=== PATIENT | male | born 1995 | race American Indian/Alaskan Native ===

== ENCOUNTER 2020-09-17 18:53 | Emergency (ER) | payer SELFPAY ==
--- NOTE | 2020-09-17 20:58 | Emergency Department Report ---
ED Male HPI - General Chief complaint: Urogenital-Male Stated complaint: STD EXPOSURE Source: patient Mode of arrival: Ambulatory Limitations: No Limitations - History of Present Illness Initial comments: Patient is a 24-year-old -[place] male with no past medical history presents to the ED with complaint of dysuria, penile discharge and low back pain for the last 3 days. Patient states that he suspected he may have been exposed to STD after having unprotected sexual intercourse about a week ago. Patient denies testicular pain, fever, chills, nausea, vomiting, abdominal pain, hematuria, cough, sore throat, chest pain and shortness of breath MD Complaint: penile discharge, dysuria, other (STD exposure) -: Sudden, days(s) (3) Location: penis Radiation: none Severity: moderate Severity scale (0 -10): 4 Quality: burning Consistency: intermittent Improves with: none Worsens with: urination denies other symptoms, discharge, dysuria. denies: swelling, mass, rash, urinary retention, blood in urine, fever, nausea/vomiting, incontinence, other - Related Data Sexually active: Yes Previous Rx's Medication Instructions Recorded Last Taken Type Doxycycline Hyclate 100 mg PO Q12H #28 tablet. 09/17/20 Unknown Rx Allergies Allergy/AdvReac Type Severity Reaction Status Date / Time No Known Allergies Allergy Unverified 09/17/20 20:30 ED Review of Systems ROS: Stated complaint: STD EXPOSURE Other details as noted in HPI Constitutional: denies: chills, fever Eyes: denies: eye pain, eye discharge, vision change ENT: denies: ear pain, throat pain Respiratory: denies: cough, shortness of breath, wheezing Cardiovascular: denies: chest pain, palpitations Endocrine: no symptoms reported Gastrointestinal: denies: abdominal pain, nausea, diarrhea Genitourinary: urgency, dysuria, frequency, discharge. denies: testicular pain, testicular mass Musculoskeletal: denies: back pain, joint swelling, arthralgia Skin: denies: rash, lesions Neurological: denies: headache, weakness, paresthesias Psychiatric: denies: anxiety, depression Hematological/Lymphatic: denies: easy bleeding, easy bruising ED Past Medical Hx - Medications Home Medications: Home Medications Medication Instructions Recorded Confirmed Last Taken Type Doxycycline Hyclate 100 mg PO Q12H #28 tablet. 09/17/20 Unknown Rx ED Physical Exam - General Limitations: No Limitations General appearance: alert, in no apparent distress - Head Head exam: Present: atraumatic, normocephalic, normal inspection - Eye Eye exam: Present: normal appearance, PERRL, EOMI Pupils: Present: normal accommodation - ENT ENT exam: Present: normal exam, normal orophraynx, mucous membranes moist, TM's normal bilaterally, normal external ear exam - Neck Neck exam: Present: normal inspection, full ROM - Respiratory Respiratory exam: Present: normal lung sounds bilaterally. Absent: respiratory distress, wheezes, rales, rhonchi, chest wall tenderness - Cardiovascular Cardiovascular Exam: Present: regular rate, normal rhythm, normal heart sounds. Absent: systolic murmur, diastolic murmur, rubs, gallop - GI/Abdominal GI/Abdominal exam: Present: soft, normal bowel sounds. Absent: tenderness, guarding, rebound, hyperactive bowel sounds, hypoactive bowel sounds, organomegaly - External exam: Present: other (Genital exam deferred) - Extremities Exam Extremities exam: Present: normal inspection, full ROM, normal capillary refill - Back Exam Back exam: Present: normal inspection, full ROM. Absent: tenderness, CVA tenderness (R), CVA tenderness (L), muscle spasm, vertebral tenderness - Neurological Exam Neurological exam: Present: alert, oriented X3, CN II-XII intact, normal gait, reflexes normal - Psychiatric Psychiatric exam: Present: normal affect, normal mood - Skin Skin exam: Present: warm, dry, intact, normal color. Absent: rash ED Course Vital Signs 09/17/20 20:26 Temperature 98.5 F Pulse Rate 66 Respiratory 16 Rate Blood Pressure 122/88 [Left] O2 Sat by Pulse 100 Oximetry ED Medical Decision Making - Medical Decision Making This is a 24-year-old -[place] male with no past medical history presents to the ED with complaint of dysuria, penile discharge and low back pain for the last 3 days. Patient states that he suspected he may have been exposed to STD after having unprotected sexual intercourse about a week ago. In the ED, patient is alert and oriented x3 and is not in any distress, and is hemodynamically stable. Patient will discharge from the ED with a prescription of doxycycline and advised to follow-up at the [facility] department for further STD testing including gonorrhea test. Patient was advised to return to the ED immediately if symptoms get worse, otherwise follow-up with his primary care physician in 7 to 10 days for reevaluation. - Differential Diagnosis Urethritis; UTI; STD; gonorrhea; chlamydia Critical care attestation.: If time is entered above; I have spent that time in minutes in the direct care of this critically ill patient, excluding procedure time. ED Disposition Clinical Impression: Possible exposure to STD, Urethritis, nonspecific, Dysuria Disposition: TO HOME OR SELFCARE Is pt being admited?: No Does the pt Need Aspirin: No Condition: Stable Instructions: Chlamydia, Male, Urethritis, Adult, Safe Sex, Gonorrhea Additional Instructions: Follow-up with the [facility] department for further STD testing including treatment for gonorrhea. Return to the ED immediately if symptoms get worse. Prescriptions: Doxycycline Hyclate 100 mg PO Q12H #28 tablet. Referrals: [facility] [Provider Group] - 3-5 Days Forms: STI Treatment and Prevention Time of Disposition: 20:55 Print Language: TELUGU
== END 2020-09-17 21:10 | disposition home or self-care (01) ==
LOC: ED 18:53
CPT/HCPCS: 99282

== ENCOUNTER 2021-03-05 10:07 | Emergency (ER) | payer SELFPAY ==
[2021-03-05 11:40] VITALS: BP 132/66
--- NOTE | 2021-03-05 13:01 | Emergency Department Report ---
ED Abdominal Pain HPI - General Chief Complaint: Abdominal Pain Stated Complaint: CONSTIPATION Time Seen by Provider: 03/05/21 12:34 Source: patient Mode of arrival: Ambulatory Limitations: No Limitations - History of Present Illness Initial Comments: 25-year-old male complaining abdominal pain x1 day. Patient states last BM was 1 week ago. Patient states drinking mag citrate on yesterday with mild results. Patient also states Dulcolax stool softener x1. Patient states last bowel movement x1 week ago. Denies any nausea vomiting or diarrhea. Patient states pain 9 when attempting to have a bowel movement. Patient is nonguarded sitting comfortable playing with cell phone. MD Complaint: abdominal pain Onset/Timin -: days(s) Location: diffuse, RUQ Radiation: none Migration to: no migration Severity: moderate Severity scale (0 -10): 9 Quality: other (For) Consistency: constant Improves With: nothing Worsens With: bowel movement Associated Symptoms: denies other symptoms - Related Data Previous Rx's Medication Instructions Recorded Last Taken Type polyethylene glycoL 3350 [Miralax 17 gm PO BID 30 Days #30 packet 03/05/21 Unknown Rx 3350] Allergies Allergy/AdvReac Type Severity Reaction Status Date / Time sulfamethoxazole Allergy Intermediate Hives Verified 03/05/21 11:40 [From Bactrim] trimethoprim [From Bactrim] Allergy Intermediate Hives Verified 03/05/21 11:40 ED Review of Systems ROS: Stated complaint: CONSTIPATION Other details as noted in HPI Comment: All other systems reviewed and negative Cardiovascular: as per HPI. denies: chest pain, palpitations Gastrointestinal: constipation. denies: abdominal pain, nausea, vomiting, hematochezia Genitourinary: denies: dysuria ED Past Medical Hx - Medications Home Medications: Home Medications Medication Instructions Recorded Confirmed Last Taken Type polyethylene glycoL 3350 [Miralax 17 gm PO BID 30 Days #30 packet 03/05/21 U nknown Rx 3350] ED Physical Exam - General Limitations: No Limitations General appearance: alert, in no apparent distress - Eye Eye exam: Present: normal appearance - ENT ENT exam: Present: normal exam - Neck Neck exam: Present: normal inspection - Respiratory Respiratory exam: Present: normal lung sounds bilaterally - Cardiovascular Cardiovascular Exam: Present: normal rhythm - GI/Abdominal GI/Abdominal exam: Present: normal bowel sounds. Absent: distended, tenderness, guarding, rebound, rigid ED Course Vital Signs 03/05/21 11:38 Temperature 98.2 F Pulse Rate 78 Respiratory 15 Rate Blood Pressure 132/66 O2 Sat by Pulse 98 Oximetry ED Medical Decision Making - Radiology Data Radiology results: report reviewed Patient: MILLER COLIN MR#: [id number] 5 : 1995 Acct:[id number] Age/Sex: 25 / M ADM Date: 03/05/21 Loc: ED Attending Dr: Ordering Physician: KIMBERLI DELGADILLO Date of Service: 03/05/21 Procedure(s): XR abdomen 1V ap Accession Number(s): [id number] cc: KIMBERLI DELGADILLO Fluoro Time In Minutes: ABDOMEN 1 VIEW(S) INDICATION / CLINICAL INFORMATION: abdominal pain possible question constipation. COMPARISON: None available. FINDINGS: TUBES / LINES: None. BOWEL GAS PATTERN: No significant abnormality. FREE AIR / EXTRALUMINAL GAS: None seen. ADDITIONAL FINDINGS: No significant additional findings. IMPRESSION: 1. No significant abnormality. Signer Name: Yrn Jenkins MD Signed: 03/05/2021 1:37 PM Workstation Name: [id number] Transcribed By: MERCEDES Dictated By: Yrn Jenkins MD Electronically Authenticated By: Yrn Jenkins MD Signed Date/Time: 03/05/211336 DD/ 35 TD/TT: - Medical Decision Making 25-year-old male complaining constipation pain x1 day. Patient states last BM was 1 week ago. Patient states drinking mag citrate on yesterday with mild results. Patient also states Dulcolax stool softener x1. Patient states last bowel movement x1 week ago. Denies any nausea vomiting or diarrhea. Patient states pain 9 when attempting to have a bowel movement. Patient is nonguarded sitting comfortable playing with cell phone. Patient reexamined after KUB examination showed no acute finding. Normal reexamination of the abdomen area. patient declined any further lab work or diagnostic tests at present. Patient to follow-up with . Increase fiber increase clear liquid and will give patient MiraLAX to go home on. Patient is alert oriented and resting quietly at time of discharge. - Differential Diagnosis Pancreatitis constipation, constipation, Abdominal pain Critical care attestation.: If time is entered above; I have spent that time in minutes in the direct care of this critically ill patient, excluding procedure time. ED Disposition Clinical Impression: Unspecified abdominal pain Qualifiers: Abdominal location: generalized Qualified Code(s): R10.84 - Generalized abdominal pain Disposition: HOME / SELF CARE / HOMELESS Is pt being admited?: No Does the pt Need Aspirin: No Condition: Stable Instructions: Constipation, Adult, Abdominal Pain, Adult, Mngv-ve-Gvax Additional Instructions: Increase fiber in food Increase fluid intake May drink another bottle of mag citrate followed by 8 ounce glass of water Follow-up with [facility] Return if symptom gets worse Prescriptions: polyethylene glycoL 3350 [Miralax 3350] 17 gm PO BID 30 Days #30 packet Referrals: PRIMARY CARE, [Primary Care Provider] - 3-5 Days SARA ZHONG [Advanced Practice Nurse] - 3-5 Days Time of Disposition: 14:29
--- NOTE | 2021-03-05 13:41 | XRay Report ---
ABDOMEN 1 VIEW(S) INDICATION / CLINICAL INFORMATION: abdominal pain possible question constipation. COMPARISON: None available. FINDINGS: TUBES / LINES: None. BOWEL GAS PATTERN: No significant abnormality. FREE AIR / EXTRALUMINAL GAS: None seen. ADDITIONAL FINDINGS: No significant additional findings. IMPRESSION: 1. No significant abnormality. Signer Name: Yrn Jenkins MD Signed: 03/05/2021 1:37 PM Workstation Name: [id number]
== END 2021-03-05 15:46 | disposition home or self-care (01) ==
LOC: ED 10:07
DX: R10.9 Unspecified abdominal pain (principal); Z88.1 Allergy status to other antibiotic agents
CPT/HCPCS: 74018; 99283

== ENCOUNTER 2021-03-08 20:44 | Emergency (ER) | payer SELFPAY ==
[2021-03-08 20:49] VITALS: BP 148/84
[2021-03-08 22:16] LABS: Mucus,Urine FEW /HPF
[2021-03-08] MEDS ORDERED: PHENAZOPYRIDINE 200 MG TAB PO ONE (22:25)
[2021-03-08] MEDS ORDERED: LIDOCAINE-MPF (1%) 10 MG/1 ML VIAL 5 ML INFILTRATI ONE (22:25)
--- NOTE | 2021-03-08 22:31 | Emergency Department Report ---
ED Male HPI - General Chief complaint: Urogenital-Male Stated complaint: PENIS IS BURNING AND ITCHING Source: patient Mode of arrival: Ambulatory Limitations: No Limitations - History of Present Illness Initial comments: Patient is a 25-year-old -[place] male with no past medical history presented to the ED with complaint of acute onset persistent urinary frequency a nd urgency, dysuria, and rectal discharge after having unprotected intercourse with his sex partner a week ago. Patient states that the pain is worse so that he is unable to tolerate urination due to worsening burning pain. Patient denies testicular pain, hematuria, melena, traumatic injury, low back pain, fever, chills, nausea and vomiting or abdominal pain. MD Complaint: dysuria, other (rectal discharge) -: Sudden, week(s) (1) Location: penis Radiation: none Severity scale (0 -10): 4 Quality: aching, burning, sharp Consistency: constant Improves with: none Worsens with: urination, sexual intercourse new medication denies other symptoms, discharge, dysuria. denies: swelling, mass, rash, urinary retention, blood in urine, fever, nausea/vomiting, incontinence, other - Related Data Sexually active: Yes Previous Rx's Medication Instructions Recorded Last Taken Type polyethylene glycoL 3350 [Miralax 17 gm PO BID 30 Days #30 packet 03/05/21 Unknown Rx 3350] Doxycycline Hyclate 100 mg PO Q12H #28 cap 03/08/21 Unknown Rx Ibuprofen [Motrin] 600 mg PO Q8H PRN #20 tablet 03/08/21 Unknown Rx Phenazopyridine [Pyridium] 200 mg PO TID #21 tab 03/08/21 Unknown Rx Allergies Allergy/AdvReac Type Severity Reaction Status Date / Time sulfamethoxazole Allergy Intermediate Hives Verified 03/05/21 11:40 [From Bactrim] trimethoprim [From Bactrim] Allergy Intermediate Hives Verified 03/05/21 11:40 ED Review of Systems ROS: Stated complaint: PENIS IS BURNING AND ITCHING Other details as noted in HPI Constitutional: denies: chills, fever Eyes: denies: eye pain, eye discharge, vision change ENT: denies: ear pain, throat pain Respiratory: denies: cough, shortness of breath, wheezing Cardiovascular: denies: chest pain, palpitations Endocrine: no symptoms reported Gastrointestinal: denies: abdominal pain, nausea, diarrhea Genitourinary: urgency, dysuria, frequency, discharge Musculoskeletal: denies: back pain, joint swelling, arthralgia Skin: denies: rash, lesions Neurological: denies: headache, weakness, paresthesias Psychiatric: denies: anxiety, depression Hematological/Lymphatic: denies: easy bleeding, easy bruising ED Past Medical Hx - Past Medical History Previous Medical History?: No - Surgical History Past Surgical History?: No - Social History Smoking Status: Never Smoker Substance Use Type: Alcohol - Medications Home Medications: Home Medications Medication Instructions Recorded Confirmed Last Taken Type polyethylene glycoL 3350 [Miralax 17 gm PO BID 30 Days #30 packet 03/05/21 Unknown Rx 3350] Doxycycline Hyclate 100 mg PO Q12H #28 cap 03/08/21 Unknown Rx Ibuprofen [Motrin] 600 mg PO Q8H PRN #20 tablet 03/08/21 Unknown Rx Phenazopyridine [Pyridium] 200 mg PO TID #21 tab 03/08/21 Unknown Rx ED Physical Exam - General Limitations: No Limitations General appearance: alert, in no apparent distress - Head Head exam: Present: atraumatic, normocephalic, normal inspection - Eye Eye exam: Present: normal appearance, PERRL, EOMI Pupils: Present: normal accommodation - ENT ENT exam: Present: normal exam, normal orophraynx, mucous membranes moist, TM's normal bilaterally, normal external ear exam - Neck Neck exam: Present: normal inspection, full ROM. Absent: tenderness, meningismus - Respiratory Respiratory exam: Present: normal lung sounds bilaterally. Absent: respiratory distress, wheezes, rales, rhonchi, stridor, chest wall tenderness, accessory muscle use, prolonged expiratory - Cardiovascular Cardiovascular Exam: Present: regular rate, normal rhythm, normal heart sounds. Absent: systolic murmur, diastolic murmur, rubs, gallop - GI/Abdominal GI/Abdominal exam: Present: soft, normal bowel sounds. Absent: tenderness, guarding, rebound, hyperactive bowel sounds, hypoactive bowel sounds, organomegaly, bruit - External exam: Present: other (Genital exam deferred at this time) - Extremities Exam Extremities exam: Present: normal inspection, full ROM, normal capillary refill - Back Exam Back exam: Present: normal inspection, full ROM. Absent: tenderness, CVA tenderness (R), CVA tenderness (L), muscle spasm, paraspinal tenderness, vertebral tenderness - Neurological Exam Neurological exam: Present: alert, oriented X3, CN II-XII intact, normal gait, reflexes normal - Psychiatric Psychiatric exam: Present: normal affect, normal mood - Skin Skin exam: Present: warm, dry, intact, normal color. Absent: rash ED Course Vital Signs 03/08/21 20:48 Temperature 99.1 F Pulse Rate 94 H Respiratory 18 Rate Blood Pressure 148/84 O2 Sat by Pulse 98 Oximetry ED Medical Decision Making - Medical Decision Making This is a 25-year-old -[place] male with no past medical history presented to the ED with complaint of acute onset persistent urinary frequency and urgency, dysuria, and rectal discharge after having unprotected intercourse with his sex partner a week ago. Patient states that the pain is worse so that he is unable to tolerate urination due to worsening burning pain. In the ED, patient is alert and oriented x3 and is not in any distress. Patient was treated in the ED for pain and also given Rocephin 1 g IM x1, for suspected gonorrhea. Patient was thereafter discharged home on pain medication and antibiotics doxycycline 100 mg capsules to be taken twice a day - Differential Diagnosis Urethritis; Gonorrhea; Chlamydia; UTI Critical care attestation.: If time is entered above; I have spent that time in minutes in the direct care of this critically ill patient, excluding procedure time. ED Disposition Clinical Impression: Acute gonococcal urethritis, Urethritis due to Chlamydia trachomatis Disposition: HOME / SELF CARE / HOMELESS Is pt being admited?: No Does the pt Need Aspirin: No Condition: Stable Instructions: Gonococcal Urethritis (ED), Urethritis, Adult, Chlamydia Test, Gonorrhea, Chlamydia, Male Additional Instructions: Take medication with food, drink plenty of fluids and follow-up with the [facility] department for further evaluation of STD including syphilis and HIV. Ensure that you have your sex partner treated at the same time. Return to the ED immediately if symptoms get worse. Prescriptions: Doxycycline Hyclate 100 mg PO Q12H #28 cap Ibuprofen [Motrin] 600 mg PO Q8H PRN #20 tablet PRN Reason: Pain Phenazopyridine [Pyridium] 200 mg PO TID #21 tab Referrals: [facility] [Outside] - 7-10 days Time of Disposition: 22:31 Print Language: MONTENEGRIN
[2021-03-08 22:34] LABS: Bilirubin,Urine NEG (Negative); Blood,Urine NEG (Negative); Color,Urine Yellow (Yellow); Protein,Urine <15 mg/dL mg/dL (Negative); Urobilinogen,Urine < 2.0 mg/dL (<2.0)
== END 2021-03-08 23:27 | disposition home or self-care (01) ==
LOC: ED 20:44
DX: A54.01 Gonococcal cystitis and urethritis, unspecified (principal)
CPT/HCPCS: 81001; 96372; 99283; J0696; J3490